=== PATIENT | female | born 1990 | race Caucasian/White ===

== ENCOUNTER → 2016-12-06 | Outpatient (CLI) | payer BC ==
[~2016-12-06] VITALS: Ht 160 cm; Wt 111.0 kg
[~2016-12-06] MED LIST: IRON325 M1 PO; MICROGESTIN FE1 EAC1 PO; PRENATAL TABLE1 EACH PO
[2016-12-06 14:02] VITALS: BP 110/53
== END | disposition home or self-care (01) ==
LOC: IVINF 13:54
DX: O36.0990 Maternal care for other rhesus isoimmunization, unspecified trimester, not applicable or unspecified (principal); Z3A.00 Weeks of gestation of pregnancy not specified
CPT/HCPCS: 96372; J2790

== ENCOUNTER 2017-03-02 06:47 | Inpatient (IN) | payer BC, OTHER ==
[~2017-03-02] VITALS: Ht 162.6 cm; Wt 115.5 kg
[2017-03-02] VITALS (32 sets, daily range): BP systolic 93–162; BP diastolic 52–96
[2017-03-02 09:14] LABS: EOSINOPHIL (%) 0.7 % (0-5); EOSINOPHIL COUNT 0.1 K/uL (0-0.3); HEMATOCRIT 33.6 % (36.0-46.0); IMMATURE GRANULOCYTE (%) 1.7 % (0.0-0.7); IMMATURE GRANULOCYTE COUNT 0.2 K/uL; INSTRUMENT ABS NEUTROPHIL CT 8.1 K/uL; LYMPHOCYTE COUNT 3.1 K/uL (1.0-2.8); MCH 27.4 PG (29.0-34.0); MCHC 32.1 G/DL (30.0-36.0); MCV 85.3 FL (83-99); MEAN PLAT.VOLUME 10.3 uM^3 (9.5-12.4); MONOCYTE (%) 5.7 % (3-12); MONOCYTE COUNT 0.7 K/uL (0-0.8); NEUTROPHIL (%) 66.3 % (45-76); NEUTROPHIL COUNT 8.1 K/uL (1.8-6.4); PLATELET COUNT 280 K/uL (156-360); RBC DIS.WIDTH-CV 12.8 % (11.8-14.6); RBC DIS.WIDTH-SD 39.1 % (39-53); RED BLOOD COUNT 3.94 M/uL (3.80-5.20); WHITE BLOOD COUNT 12.3 K/uL (4.1-10.2)
[2017-03-02 10:29] LABS: AMPHETAMINE NEGATIVE (500 ng/mL); BARBITURATES NEGATIVE (200 ng/mL); BENZODIAZEPINES NEGATIVE (150 ng/mL); COCAINE NEGATIVE (150 ng/mL); INTERNAL CONTROLS VALID? YES; METHADONE NEGATIVE (200 ng/mL); METHAMPHETAMINE NEGATIVE (500 ng/mL); OPIATES (MORPHINE) NEGATIVE (100 ng/mL); OXYCODONE NEGATIVE (100 ng/mL); PHENCYCLIDINE NEGATIVE (25 ng/mL); PROPOXYPHENE NEGATIVE (300 ng/mL); THC CANNABINOIDS NEGATIVE (50 ng/mL); TRICYCLIC ANTIDEPRESSANTS NEGATIVE (300 ng/mL)
[2017-03-03] VITALS (9 sets, daily range): BP systolic 100–170; BP diastolic 58–108
[2017-03-03] MEDS ORDERED: IRON325 MG PO (06:00)
[2017-03-03] MEDS ORDERED: CLASSIC PRENAT1 EACH PO (06:00)
[2017-03-03 08:02] LABS: EOSINOPHIL (%) 0 % (0-5); HEMATOCRIT 29.8 % (36.0-46.0); IMMATURE GRANULOCYTE (%) 1.3 % (0.0-0.7); IMMATURE GRANULOCYTE COUNT 0.2 K/uL; INSTRUMENT ABS NEUTROPHIL CT 16.1 K/uL; LYMPHOCYTE COUNT 1.7 K/uL (1.0-2.8); MCH 27.2 PG (29.0-34.0); MCHC 31.5 G/DL (30.0-36.0); MCV 86.4 FL (83-99); MEAN PLAT.VOLUME 10.3 uM^3 (9.5-12.4); MONOCYTE (%) 2.4 % (3-12); MONOCYTE COUNT 0.5 K/uL (0-0.8); NEUTROPHIL COUNT 16.1 K/uL (1.8-6.4); PLATELET COUNT 275 K/uL (156-360); RBC DIS.WIDTH-SD 40.2 % (39-53); RED BLOOD COUNT 3.45 M/uL (3.80-5.20)
[2017-03-03 08:06] LABS: WHITE BLOOD COUNT 18.5 K/uL (4.1-10.2)
[2017-03-04 03:00] VITALS: BP 102/106
[2017-03-04 07:32] VITALS: BP 115/83
[2017-03-04] MEDS ORDERED: ENDOCET 5-3251 EACH PO (09:12)
[2017-03-04] MEDS ORDERED: IBUPROFEN800 MG PO (09:12)
== END 2017-03-04 13:01 | disposition home or self-care (01) | DRG 765 ==
LOC: LDRP-OP → 2WEST 06:48 → LDRP-OP 03-29 09:15
PROVIDERS: Advanced Practice Midwife; Obstetrics & Gynecology
DX: O65.4 Obstructed labor due to fetopelvic disproportion, unspecified (principal); O41.1230 Chorioamnionitis, third trimester, not applicable or unspecified; O99.02 Anemia complicating childbirth; D62 Acute posthemorrhagic anemia; O99.214 Obesity complicating childbirth; E66.01 Morbid (severe) obesity due to excess calories; Z68.41 Body mass index [BMI] 40.0-44.9, adult; Z3A.40 40 weeks gestation of pregnancy; Z37.0 Single live birth; O76 Abnormality in fetal heart rate and rhythm complicating labor and delivery; O69.1XX0 Labor and delivery complicated by cord around neck, with compression, not applicable or unspecified; O32.8XX0 Maternal care for other malpresentation of fetus, not applicable or unspecified; O62.1 Secondary uterine inertia; O48.0 Post-term pregnancy; F17.210 Nicotine dependence, cigarettes, uncomplicated; O99.334 Smoking (tobacco) complicating childbirth; O26.893 Other specified pregnancy related conditions, third trimester; Z67.41 Type O blood, Rh negative
CPT/HCPCS: 80306 90; 83030; 85025; 86900; 86901; 88307; C1755; J0595; J0690; J1100; J2274; J2405; J2790; J7120; Q0169